=== PATIENT | female | born 1965 | race Caucasian/White ===

== ENCOUNTER 2018-10-28 17:33 | Emergency (ER) | payer BC ==
--- OUTSIDE RECORDS SUMMARY | 2018-10-28 17:54 | XMS REPORT | Continuity of Care Document ---
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 performed by [facility]. This test was developed and its performance characteristics determined by [facility] in a manner consistent with CLIA requirements. This test has not been cleared or approved by the U.S. Food and Drug Administration. 27 ADDITIONAL INFORMATION Testing performed by Liquid Chromatography-Tandem Mass Spectrometry (LC-MS/MS). This test was developed and its performance characteristics determined by [facility] in a manner consistent with CLIA requirements. This test has not been cleared or approved by the U.S. Food and Drug Administration. Test Performed by: [address] [id number] 28 Because ethnic data is not always readily available, this report includes an eGFR for both -Americans and non- Americans. The National Kidney Disease Education Program (NKDEP) does not endorse the use of the MDRD equation for patients that are not between the ages of 18 and 70, are , have extremes of body size, muscle mass, or nutritional status, or are non- or non-. According to the National Kidney Foundation, irrespective of diagnosis, the stage of the disease is based on the level of kidney function: Stage Description GFR(mL/min/1.73 m(2)) 1 Kidney damage with normal or decreased GFR 90 2 Kidney damage with mild decrease in GFR 60-89 3 Moderate decrease in GFR 30-59 4 Severe decrease in GFR 15-29 5 Kidney failure <15 (or dialysis) 29 ADDITIONAL INFORMATION This test was developed using an analyte specific reagent. Its performance characteristics were determined by [facility] in a manner consistent with CLIA requirements. This test has not been cleared or approved by the U.S. Food and Drug Administration. Test Performed by: [address] [address] Procedures Date Code Description Status 05/28/2016 [id number] Mammogram Completed Encounters Type Date Location Provider Dx Diagnosis Office Visit 02/25/2018 1:15p Irais Duke, M54.2 Cervicalgia Kamar, R.D. M54.5 Low back pain M54.6 Pain in thoracic spine M54.32 Sciatica, left side R59.0 Localized enlarged lymph nodes M62.40 Contracture of muscle, unspecified site R53.82 Chronic fatigue, unspecified A69.20 Lyme disease, unspecified Office Visit 01/07/2018 [place] Duke A69.20 Lyme disease, 12:45p Kamar, R.D. unspecified I95.89 Other hypotension Office Visit 11/19/2017 [place] Eric Duke A69.20 Lyme disease, 12:45p Kamar, R.D. unspecified A77.49 Other ehrlichiosis Office Visit 10/06/2017 4:15p Main Office Shantanu Porras, R53.82 Chronic MD corey unspecified L23.1 Allergic contact dermatitis due to adhesives Office Visit 08/30/2017 3:15p Main Office Елена Duke A69.20 Kyler doherty M.D., R.D. 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 unspecified M79.605 Pain in left leg R19.7 Diarrhea, unspecified I95.89 Other hypotension Office Visit 03/22/2017 4:00p Main Office Елена Duke, A69.20 Lyme disease, Jose., R.D. unspecified M79.605 Pain in left leg F43.20 Adjustment disorder, unspecified Office Visit 02/08/2017 4:00p Main Office Елена Duke, R53.82 Chronic fatigue, M.D., R.D. unspecified M54.5 Low back pain M79.605 Pain in left leg Office Visit 01/06/2017 4:00p Main Office Елена Duke M.D., M54.5 Low back pain R.D. M79.605 Pain in left leg R53.82 Chronic fatigue, unspecified Office Visit 12/25/2016 10:15a Main Office Елена Duke, R53.82 Chronic fatigue, MGa., R.D. unspecified E03.9 Hypothyroidism, unspecified M54.2 Cervicalgia F90.0 Attn-defct hyperactivity disorder, predom inattentive type Office Visit 09/23/2016 4:15p Main Office Елена Duke R53.82 Chronic fatigue, M.D., R.D. unspecified E03.9 Hypothyroidism, unspecified D51.9 Vitamin B12 deficiency anemia, unspecified N95.1 Menopausal and female climacteric states M79.7 Fibromyalgia M54.5 Low back pain Office Visit 07/06/2016 3:00p Main Office Елена Duke M.D., M79.7 Fibromyalgia R.D. 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 deficiency anemia, unspecified M79.7 Fibromyalgia R53.82 Chronic fatigue, unspecified L65.9 Nonscarring hair loss, unspecified M54.5 Low back pain Office Visit 05/20/2016 3:45p Main Office Shantanu Porras G89.4 Chronic pain MD syndrome Plan of Treatment 10/07/2018 - Елена Duke M.D., R.D.M54.6 Pain in thoracic iwbbpY42.4 Echinococcus granulosus infection, unspecifiedRecommendations:Continue to take albendazole and ivermectin until you see the new Lyme doctor. I am calling in your[facility]ormone prescription to [facility]. Try to get an appt. with Dr. Vince Medellin as soon as you can.A69.20 Lyme disease, unspecified
[2018-10-28 19:29] LABS: ABS Basophils 0.1 10^3/ul (0-0.2); ABS Eosinophils 0.1 10^3/ul (0-0.6); ABS Lymphocytes 1.3 10^3/ul (1.0-4.8); ABS Monocytes 0.4 10^3/ul (0-0.8); ABS Neutrophils 4.9 10^3/ul (1.5-7.7); Eosinophil % 1.2 %; Hematocrit 44 % (35-47); Hemoglobin 14.5 g/dL (12.0-16.0); Lymphocyte % 19.4 %; Mean Corpuscular HGB Conc 33 g/dL (31-36); Mean Corpuscular Hemoglobin 33 pg (27-31); Mean Corpuscular Volume 100 fL (80-97); Mean Platelet Volume 9.4 fL (7.4-10.4); Platelet Count 232 10^3/uL (150-450); Red Blood Count 4.36 10^6 /uL (3.70-4.87); Red Cell Distribution Width 13 % (10.5-15); White Blood Count 6.7 10^3/uL (3.5-10.8)
[2018-10-28] MEDS ORDERED: NS 0.9% 1000 ML** 2,000 ML IV ONE (19:49)
[2018-10-28 19:50] LABS: Albumin 4.9 g/dL (3.2-5.2); Albumin/Globulin Ratio 1.8 (1-3); BUN/Creatinine Ratio 16.4 (8-20); Calcium 10.3 mg/dL (8.6-10.3); EGFR African American 124.1 (>60); EGFR Non-African American 102.6 (>60); Globulin 2.8 g/dL (2-4); Potassium 4.2 mmol/L (3.5-5.0); Total Bilirubin 0.5 mg/dL (0.2-1.0); Total Protein 7.7 g/dL (6.4-8.9)
[2018-10-28] MEDS ORDERED: Ketorolac INJ* 30 MG/ML 1 ML VIAL IV PUSH ONE ×2 (19:50→21:18)
--- NOTE | 2018-10-28 20:06 | ED ---
GI/ HPI - HPI Summary HPI Summary: 53-year-old female presents with abdominal pain for the past couple months. She states in the past couple days it has gotten worse and is tender over right lower quadrant. She admits to nausea vomiting diarrhea. States she is being currently treated for hookworm and other kinds of tapeworms. She also just started vancomycin for C. difficile. She states that her primary's has been managing her symptoms but told her with worsening pain to come here for a scan. She states she has history of hypotension and often requires IV fluids as she has a PICC line in place. She denies any chest or shortness breath. No urinary symptoms. No abnormal vaginal disorder. Denies any fevers. has had appendix and uterus removed. she has been using Tylenol and Advil for pain. she states the pain is like a cramp and seems to get worst in waves. - History of Current Complaint Chief Complaint: EDAbdPain Time Seen by Provider: 10/28/18 19:38 Stated Complaint: ABD PAIN PER PT Pain Intensity: 7 - Allergy/Home Medications Allergies/Adverse Reactions: Allergies Allergy/AdvReac Type Severity Reaction Status Date / Time adhesive tape Allergy Rash Verified 10/28/18 17:40 epinephrine Allergy Palpitation Verified 10/28/18 17:40 s PMH/Surg Hx/FS Hx/Imm Hx Endocrine/Hematology History: Denies: Hx Anticoagulant Therapy Cardiovascular History: Reports: Hx Hypotension, Other Cardiovascular Problems/ Disorders - patel Infectious Disease History: No Infectious Disease History: Denies: Traveled Outside the [place] in Last 30 Days - Family History Known Family History: Positive: Non-Contributory - Social History Alcohol Use: None Substance Use Type: Reports: None Smoking Status (MU): Never Smoked Tobacco Review of Systems Negative: Fever Negative: Chest Pain Negative: Shortness Of Breath Positive: Abdominal Pain, Vomiting, Diarrhea, Nausea All Other Systems Reviewed And Are Negative: Yes Physical Exam Triage Information Reviewed: Yes Vital Signs On Initial Exam: Initial Vitals Temp Pulse Resp BP Pulse Ox 98.2 F 99 18 149/95 100 10/28/18 17:37 10/28/18 17:37 10/28/18 17:37 10/28/18 17:37 10/28/18 17:37 Vital Signs Reviewed: Yes Appearance: Positive: Well-Appearing Skin: Positive: Warm, Dry Head/Face: Positive: Normal Head/Face Inspection Eyes: Positive: Normal, EOMI, LETI, Conjunctiva Clear ENT: Positive: Normal ENT inspection, Pharynx normal, TMs normal Respiratory/Lung Sounds: Positive: Clear to Auscultation, Breath Sounds Present Cardiovascular: Positive: Normal, RRR Abdomen Description: Positive: Soft, Other: - tenderness RLQ Bowel Sounds: Positive: Present Musculoskeletal: Positive: Normal Neurological: Positive: Normal Psychiatric: Positive: Normal Diagnostics - Vital Signs Vital Signs Temp Pulse Resp BP Pulse Ox 10/28/18 19:23 99 F 103 18 112/82 100 10/28/18 17:37 98.2 F 99 18 149/95 100 - Laboratory Lab Results: Lab Results 10/28/18 10/28/18 Range/Units 19:21 19:21 WBC 6.7 (3.5-10.8) 10^3/uL RBC 4.36 (3.70-4.87) 10^6 /uL Hgb 14.5 (12.0-16.0) g/dL Hct 44 (35-47) % MCV 100 H (80-97) fL MCH 33 H (27-31) pg MCHC 33 (31-36) g/dL RDW 13 (10.5-15) % Plt Count 232 (150-450) 10^3/uL MPV 9.4 (7.4-10.4) fL Neut % (Auto) 72.4 % Lymph % (Auto) 19.4 % [place] % (Auto) 6.0 % Eos % (Auto) 1.2 % Baso % (Auto) 1.0 % Absolute Neuts (auto) 4.9 (1.5-7.7) 10^3/ul Absolute Lymphs (auto) 1.3 (1.0-4.8) 10^3/ul Absolute Monos (auto) 0.4 (0-0.8) 10^3/ul Absolute Eos (auto) 0.1 (0-0.6) 10^3/ul Absolute Basos (auto) 0.1 (0-0.2) 10^3/ul Absolute Nucleated RBC 0.0 10^3/ul Nucleated RBC % 0.0 Sodium 139 (135-145) mmol/L Potassium 4.2 (3.5-5.0) mmol/L Chloride 105 (101-111) mmol/L Carbon Dioxide 28 (22-32) mmol/L Anion Gap 6 (2-11) mmol/L BUN 10 (6-24) mg/dL Creatinine 0.61 (0.51-0.95) mg/dL Est GFR ( Amer) 124.1 (>60) Est GFR (Non-Af Amer) 102.6 (>60) BUN/Creatinine Ratio 16.4 (8-20) Glucose 93 (70-100) mg/dL Calcium 10.3 (8.6-10.3) mg/dL Total Bilirubin 0.50 (0.2-1.0) mg/dL AST 28 (13-39) U/L ALT 28 (7-52) U/L Alkaline Phosphatase 55 (34-104) U/L C-Reactive Protein Pending Total Protein 7.7 (6.4-8.9) g/dL Albumin 4.9 (3.2-5.2) g/dL Globulin 2.8 (2-4) g/dL Albumin/Globulin Ratio 1.8 (1-3) Lipase 64 (11.0-82.0) U/L Result Diagrams: 10/28/18 19:21 10/28/18 19:21 Lab Statement: Any lab studies that have been ordered have been reviewed, and results considered in the medical decision making process. - CT abd CT Interpretation Completed By: Radiologist Summary of CT Findings: IMPRESSION: Cholelithiasis. Degenerative disease at L4 -5-S1. Re-Evaluation - Re-Evaluation First Eval Re-Evaluation Time: 21:06 Comment: requesting nausea medication Second Eval Re-Evaluation Time: 21:18 Change: Worse Comment: pain is worst Third Eval Re-Evaluation Time: 21:48 Comment: wants pain medication now is requesting fentayl. Fourth Eval Re-Evaluation Time: 01:01 Comment: had diarrhea will send for ova and parasite GIGU Course/Dx - Course Course Of Treatment: 53-year-old female presents with abdominal pain for the past couple months. She states in the past couple days it has gotten worse and is tender over right lower quadrant. She admits to nausea vomiting diarrhea. States she is being currently treated for hookworm and other kinds of tapeworms. She also just started vancomycin for C. difficile. She states that her primary's has been managing her symptoms but told her with worsening pain to come here for a scan. She states she has history of hypotension and often requires IV fluids as she has a PICC line in place. She denies any chest or shortness breath. No urinary symptoms. No abnormal vaginal disorder. Denies any fevers. On exam tenderness right lower quadrant. no rebound. wbc normal. CRP normal. Electrolytes normal. patient states does not want any stronger pain mediation. CT shows cholelithasis. will have follow up with primary. gave referral to GI with c diff and parasites. will start on bentyl for pain. patient understand and agrees with plan. - Diagnoses Differential Diagnoses - Female: Colitis, Diarrhea, Gastroenteritis (Viral), Gastroenteritis (Bacterial), Urinary Tract Infection Provider Diagnoses: Abdominal pain Discharge - Sign-Out/Discharge Documenting (check all that apply): Patient Departure Patient Received Moderate/Deep Sedation with Procedure: No - Discharge Plan Condition: Good Disposition: HOME Prescriptions: Dicyclomine CAP* [Bentyl CAP*] 20 mg PO QID #28 cap Patient Education Materials: Abdominal Pain (ED) Referrals: Lucia SNEED,Petr Mortensen [Medical Doctor] - Елена Rosales MD [Primary Care Provider] - Ksah Francois MD [Medical Doctor] - Additional Instructions: follow up with infectious disease Follow up with GI take dicyclomine four times a day for 7 days continue tyenlol as needed every 6 hours as needed for pain Return to ED if develop any new or worsening symptoms - Billing Disposition and Condition Condition: GOOD Disposition: Home
[2018-10-28 20:14] LABS: C Reactive Protein 1.65 mg/L (<8.01)
[2018-10-28] MEDS ORDERED: Acetaminophen TAB* 325 MG PO ONE (20:28)
[2018-10-28] MEDS ORDERED: Ondansetron INJ* 2 MG/ML VIAL IV ONE (21:01)
[2018-10-28] MEDS ORDERED: fentaNYL* 50 MCG/ML 2 ML VIAL (100 MCG VIAL) IV SLOW PU ONE (21:48)
[2018-10-28] MEDS ORDERED: Iohexol 300* (CONTRAST) 10 ML SDV IV ONE (23:54)
[2018-10-29] MEDS ORDERED: Dicyclomine CAP* 10 MG PO ONE (00:46)
[2018-10-29 01:04] LABS: Urine Appearance Clear; Urine Bilirubin Negative (Negative); Urine Blood Negative (Negative); Urine Color Straw; Urine Glucose Negative (Negative); Urine Ketones Trace (Negative); Urine Nitrite Negative (Negative); Urine Protein Negative (Negative); Urine Specific Gravity 1.004 (1.010-1.030); Urine Urobilinogen Negative (Negative)
[2018-10-29 01:39] VITALS: BP 112/76
== END 2018-10-29 01:36 | disposition home or self-care (01) ==
LOC: ED 17:33
DX: R10.31 Right lower quadrant pain (principal); K80.20 Calculus of gallbladder without cholecystitis without obstruction; M51.37 Other intervertebral disc degeneration, lumbosacral region; I95.9 Hypotension, unspecified; Z88.8 Allergy status to other drugs, medicaments and biological substances
CPT/HCPCS: 36415; 74177; 80053; 81003; 83605; 83690; 85025; 86140; 87177; 87209; 87328; 87329; 96361; 96374; 96375; 99285; A9270-GY; J1885; J2405; J3010; Q9967